=== PATIENT | female | born 1950 | race Caucasian/White ===

== ENCOUNTER 2018-08-27 00:11 | Emergency (ER) | payer MEDICARE, MEDICAID ==
[~2018-08-27] VITALS: Ht 162.6 cm; Wt 74.0 kg
[2018-08-27] MEDS ORDERED: ALPR-475 PO (00:33)
[2018-08-27] MEDS ORDERED: LISI-167 PO (00:33)
[2018-08-27] MEDS ORDERED: SERT25TA PO (00:33)
[2018-08-27 00:49] LABS: BASOPHILS # (AUTO) 0.03 x10^3/uL (0-0.1); BASOPHILS % (AUTO) 0 % (0-1); EOSINOPHILS # (AUTO) 0.09 x10^3/uL (0-0.4); EOSINOPHILS % (AUTO) 1 % (1-7); LYMPHOCYTES % (AUTO) 40 % (22-44); MD NO; MEAN CORPUSCULAR HEMOGLOBIN 31.3 pg (27.0-34.8); MEAN CORPUSCULAR HGB CONC 33.5 g/dL (32.4-35.8); MEAN CORPUSCULAR VOLUME 93.4 fL (80-100); MEAN PLATELET VOLUME 8.5 fL (7.4-10.4); MONOCYTES # (AUTO) 0.54 x10^3/uL (0.2-0.8); MONOCYTES % (AUTO) 6 % (2-9); NEUTROPHILS # (AUTO) 4.39 x10^3/uL (1.8-6.8); NEUTROPHILS % (AUTO) 52 % (42-75); PLATELET COUNT 320 x10^3/uL (130-400); RED BLOOD COUNT 4.14 x10^6/uL (3.82-5.3); RED CELL DISTRIBUTION WIDTH 14.6 % (9.6-15.2)
[2018-08-27] MEDS ORDERED: ONDANSETRON ODT 4 MG ONE (00:52)
[2018-08-27 01:00] LABS: ALBUMIN 3.2 g/dL (3.4-5.0); ANION GAP 5 mmol/L (5-15); CALCIUM 8.5 mg/dL (8.5-10.1); CHLORIDE 109 mmol/L (98-107); CREATININE 0.71 mg/dL (0.55-1.02)
[2018-08-27] MEDS ORDERED: ONDANSETRON ODT 4 MG PO ONE (01:00)
[2018-08-27 01:27] VITALS: BP 166/93
--- NOTE | 2018-08-27 01:47 | NUR ---
BREAK RN: PT RESTING ON GURNEY WITH EYES CLOSED. RESPIRATIONS EVEN AND UNLABORED. VITALS STABLE. FAMILY AT BEDSIDE. WILL CONTINUE TO MONITOR.
--- NOTE | 2018-08-27 02:10 | NUR ---
BREAK RN: PT AMBULATORY TO RESTROOM WITH STEADY GAIT TO OBTAIN A URINE SAMPLE. BACK TO BED WITHOUT DIFFICULTY
[2018-08-27 02:18] LABS: MICROSCOPIC AUTO
[2018-08-27 02:20] LABS: CULTURE INDICATED? YES
--- NOTE | 2018-08-27 02:52 | NUR ---
Patient/Caregiver given discharge instructions and they have confirmed that they understand the instructions. Patient ambulatory with steady gait.
== END 2018-08-27 02:55 | disposition home or self-care (01) ==
LOC: ED 01:15
DX: R41.82 Altered mental status, unspecified (principal); F10.10 Alcohol abuse, uncomplicated; F41.1 Generalized anxiety disorder; I10 Essential (primary) hypertension
CPT/HCPCS: 36415; 70450; 80048; 80307; 81001; 82040; 85025; 87086; 93005; 99284; Q0162